=== PATIENT | male | born 1970 | race Two or more races ===

== ENCOUNTER → 2016-08-15 | Outpatient (REF) | payer OTHER ==
[2016-08-15 18:21] LABS: ANION GAP 2 MEQ/L (8-16); BLOOD UREA NITROGEN 10 MG/DL (7-18); CALCIUM LEVEL 8.8 MG/DL (8.5-10.1); CARBON DIOXIDE LEVEL 35 MEQ/L (21-32); CHLORIDE LEVEL 101 MEQ/L (98-107); CHOLESTEROL LEVEL 209 MG/DL (<200); CREATININE FOR GFR 0.85 MG/DL (0.70-1.30); GLOMERULAR FILTRATION RATE > 60.0 (>60); GLUCOSE, FASTING 91 MG/DL (70-105); POTASSIUM SERUM 4.5 MEQ/L (3.5-5.1); SODIUM LEVEL 138 MEQ/L (136-145); TRIGLYCERIDES LEVEL 129 MG/DL (<150); URIC ACID 4.8 MG/DL (3.5-7.2)
== END ==
LOC: M LABDRAW1 15:57
PROVIDERS: ATTEND Family Medicine
DX: Z00.00 Encounter for general adult medical examination without abnormal findings (principal); Z87.39 Personal history of other diseases of the musculoskeletal system and connective tissue; R03.0 Elevated blood-pressure reading, without diagnosis of hypertension

== ENCOUNTER → 2018-06-25 | Outpatient (CLI) | payer OTHER ==
--- NOTE | 2018-06-26 02:37 | REP ---
Clinical: Decreased range of motion. Impingement syndrome. Technique: Internal rotation, external rotation, and Y view left shoulder. Findings: No acute fracture or dislocation. The acromioclavicular and glenohumeral joints are intact. There is a small subtle calcification noted along the superior aspect of the glenohumeral joint which should be correlated with physical examination and may be related to patient's symptoms. Subacromial space is normal. Surrounding soft tissues are unremarkable. Impression: 1. Very faint calcification along the superior aspect of the glenohumeral joint identified which requires correlation. 2. Remainder examination appears normal. Electronically Signed by Bertrand Parker MD 06/26/2018 02:28 A
== END ==
LOC: M RAD 11:34
PROVIDERS: ATTEND Family Medicine
DX: M75.42 Impingement syndrome of left shoulder (principal)

== ENCOUNTER 2023-09-19 16:42 | Emergency (ER) | payer OTHER ==
[~2023-09-19] VITALS: Ht 188 cm; Wt 90.7 kg
[2023-09-19 16:43] VITALS: BP 135/66; TEMP 96.1; O2SAT 99
[2023-09-19] MEDS: METOPROLOL 5 MG/5 ML VIAL IV SCH (17:35)
== END 2023-09-19 17:58 | disposition left against medical advice (07) ==
LOC: M ED 16:42
DX: I48.91 Unspecified atrial fibrillation (principal); F17.210 Nicotine dependence, cigarettes, uncomplicated; F10.10 Alcohol abuse, uncomplicated; Z53.9 Procedure and treatment not carried out, unspecified reason

== ENCOUNTER 2024-10-08 00:41 | Inpatient (IN) | payer OTHER ==
[~2024-10-08] VITALS: Ht 188 cm; Wt 91.0 kg
[2024-10-08 01:08] LABS: PLATELET COUNT, AUTOMATED 299 10^3/uL (150-450)
[2024-10-08 01:31] LABS: BARBITURATES URINE NEGATIVE (NEGATIVE); COCAINE METABOLITE URINE NEGATIVE (NEGATIVE); METHADONE URINE NEGATIVE (NEGATIVE); OPIATES URINE NEGATIVE (NEGATIVE); PHENCYCLIDINE URINE NEGATIVE (NEGATIVE)
[2024-10-08 01:32] LABS: AMPHETAMINES LEVEL URINE NEGATIVE (NEGATIVE); BENZODIAZEPINES URINE NEGATIVE (NEGATIVE); CANNABINOIDS URINE NEGATIVE (NEGATIVE)
[2024-10-08 01:46] LABS: ETHYL ALCOHOL (ETHANOL) 0.172 % (0.000-0.010)
[2024-10-08 01:48] LABS: ALT/SGPT 54 U/L (7.0-40); AST/SGOT 46 U/L (<34); CALCIUM LEVEL 10.4 MG/DL (8.5-10.1); CARBON DIOXIDE LEVEL 27 MMOL/L (20-31); CHLORIDE LEVEL 100 MMOL/L (98-107); CREATININE FOR GFR 0.75 MG/DL (0.70-1.30); GLOMERULAR FILTRATION RATE > 90.0 (>56); POTASSIUM SERUM 4.5 MMOL/L (3.5-5.1); SALICYLATE LEVEL < 3.0 MG/DL (<30); SODIUM LEVEL 137 MMOL/L (136-145)
[2024-10-08] MEDS: THIAMINE 100 MG TAB PO SCH ×2 (07:59→20:05)
[2024-10-08] MEDS: MULTIVITAMINS/MINERALS THERAP 1 TAB PO SCH (07:59)
[2024-10-08] MEDS: FOLIC ACID 1 MG TAB PO SCH (08:00)
[2024-10-08] MEDS ORDERED: HOME MED LIST COMPLETE! XX SCH (08:10)
[2024-10-08] MEDS ORDERED: MOM 30 ML SUSPENSION UDC PO PRN (12:50)
[2024-10-08] MEDS ORDERED: MAALOX 30 ML SUSP *UDC PO PRN (12:50)
[2024-10-08] MEDS ORDERED: OLANZapine 5 MG TAB PO PRN (12:50)
[2024-10-08] MEDS ORDERED: ACETAMINOPHEN 325 MG TAB PO PRN (12:50)
[2024-10-08] MEDS ORDERED: LORazepam 1 MG TAB PO PRN (12:50)
[2024-10-08] MEDS ORDERED: IBUPROFEN 400 MG TAB PO PRN (12:50)
[2024-10-08] MEDS ORDERED: HALOPERIDOL 5 MG TAB PO PRN (12:50)
[2024-10-08] MEDS: NICOTINE 14 MG/24 HR TRANSDERMAL TD SCH (14:51)
[2024-10-08 15:27] VITALS: BP 154/88; TEMP 98.4; O2SAT 99
[2024-10-08 15:28] VITALS: BP 154/88
[2024-10-09 06:31] VITALS: BP 121/76; TEMP 97; O2SAT 98
[2024-10-09] MEDS: FOLIC ACID 1 MG TAB PO SCH (09:38)
[2024-10-09] MEDS: MULTIVITAMINS/MINERALS THERAP 1 TAB PO SCH (09:39)
[2024-10-09 14:51] VITALS: BP 142/88
[2024-10-09 15:06] VITALS: BP 142/88; TEMP 98.3; O2SAT 99
[2024-10-09] MEDS: SERTRALINE HCL 50 MG TAB PO SCH (15:20)
[2024-10-09] MEDS: traZODone 50 MG TAB PO PRN (20:06)
[2024-10-10 06:32] VITALS: BP 143/94; TEMP 96.9; O2SAT 98
[2024-10-10 07:47] VITALS: BP 156/88
[2024-10-10] MEDS: SERTRALINE HCL 25 MG TABLET PO SCH (09:14)
[2024-10-10 09:25] LABS: CHOLESTEROL LEVEL 222.0 MG/DL (<200); CHOLESTEROL RISK RATIO 3.54 (<5); LDL CHOLESTEROL 125.4 MG/DL (<100); NON-HDL-C 159.4 MG/DL; TRIGLYCERIDES LEVEL 170.0 MG/DL (<150)
[2024-10-10 09:29] LABS: THYROXINE (T4) 4.7 UG/DL (4.5-10.9)
[2024-10-10 09:31] LABS: FREE T4 1.20 NG/DL (0.89-1.76)
[2024-10-10 09:41] LABS: ALT/SGPT 53 U/L (7.0-40); AST/SGOT 40 U/L (<34); CALCIUM LEVEL 9.9 MG/DL (8.5-10.1); CARBON DIOXIDE LEVEL 27 MMOL/L (20-31); CHLORIDE LEVEL 106 MMOL/L (98-107); CREATININE FOR GFR 0.87 MG/DL (0.70-1.30); GLOMERULAR FILTRATION RATE > 90.0 (>56); POTASSIUM SERUM 4.4 MMOL/L (3.5-5.1); SODIUM LEVEL 141 MMOL/L (136-145)
[2024-10-10 10:44] LABS: ESTIMATED AVERAGE GLUCOSE 103.0 MG/DL (60-110)
[2024-10-10 14:38] VITALS: BP 140/87
[2024-10-10 15:23] VITALS: BP 140/87; TEMP 98.2; O2SAT 99
[2024-10-10 21:55] VITALS: BP 149/92
[2024-10-11 07:08] VITALS: BP 151/86; TEMP 98.6; O2SAT 99
[2024-10-11 07:09] VITALS: BP 151/86
[2024-10-11] MEDS: SERTRALINE HCL 50 MG TAB PO SCH (08:10)
[2024-10-11 15:21] VITALS: BP 140/81; TEMP 98.2; O2SAT 100
[2024-10-12 06:30] VITALS: BP 127/78; TEMP 97.3; O2SAT 99
[2024-10-12 15:10] VITALS: BP 126/75; TEMP 97.7; O2SAT 99
[2024-10-13 06:51] VITALS: BP 161/92; TEMP 97.5; O2SAT 96
[2024-10-13] MEDS: SERTRALINE HCL 25 MG TABLET PO ONE (11:19)
[2024-10-13 16:19] VITALS: BP 147/92; TEMP 98.1; O2SAT 96
[2024-10-14 06:15] VITALS: BP 139/86; TEMP 97.3; O2SAT 98
[2024-10-14] MEDS: SERTRALINE 100 MG TAB PO SCH (08:06)
[2024-10-14 15:47] VITALS: BP 118/65; TEMP 98.2; O2SAT 98
[2024-10-15 06:27] VITALS: BP 124/76; TEMP 96.8; O2SAT 98
[2024-10-15] MEDS ORDERED: ZOLO100T PO (08:53)
== END 2024-10-15 14:19 | disposition home or self-care (01) | DRG 751 ==
LOC: M ED 00:41 → M ED INP 12:46 → M PSY 13:38
PROVIDERS: ADMIT Internal Medicine; ATTEND Internal Medicine
DX: F33.1 Major depressive disorder, recurrent, moderate (principal); R45.851 Suicidal ideations; F41.1 Generalized anxiety disorder; F10.120 Alcohol abuse with intoxication, uncomplicated; F10.130 Alcohol abuse with withdrawal, uncomplicated; E02 Subclinical iodine-deficiency hypothyroidism; R74.01 Elevation of levels of liver transaminase levels; Z59.89 Other problems related to housing and economic circumstances